=== PATIENT | male | born 1975 | race Caucasian/White ===

== ENCOUNTER 2023-02-18 11:27 | Emergency (ER) | payer MEDICARE, MEDICAID, SELFPAY ==
[2023-02-18 11:30] VITALS: BP 108/79; PULSE 87; RESP 18; TEMP 36.7; O2SAT 98; BMI 31.4
--- NOTE | 2023-02-18 11:43 | ED_ITS ---
HPI - General Adult General Stated complaint: UPPER EXTREMITY PAIN RIGHT ARM Time Seen by Provider: 02/18/23 11:43 Source: patient Mode of arrival: walk-in History of Present Illness HPI narrative: Patient presents to emergency department complaining of right arm pain. Patient states he has been laying some landscape bricks, using a powerwash yesterday. He states it was hurting before but now it has gotten much worse. It started in the right medial condyle and now is going to the lateral condyle. pain now radiates to his wrist, and flat. He also has quite to the posterior shoulder where there is tenderness and there is deep pain with range of motion only. Patient states he had lumbar and cervical surgery years ago. He denies any weakness. He states at times he feels some mild paresthesias to his entire hand. He called his primary care doctor is unable to get a hold of him. He took ibuprofen has not had any relief. He has been taking herbal kraton. The patient denies any fever, or chills. He denies any Edema.he denies any recent trauma. Related Data Previous Rx's Medication Instructions Recorded cyclobenzaprine 10 mg tablet 10 mg PO TID PRN muscle spasm #14 02/18/23 tabs methylprednisolone 4 mg tablets in 4 mg PO DAILY #21 ea 02/18/23 a dose pack (Medrol (Erlin)) Allergies Allergy/AdvReac Type Severity Reaction Status Date / Time No Known Drug Allergies Allergy Verified 02/18/23 11:33 Review of Systems ROS Status of ROS 10 or more systems reviewed and unremarkable except as noted in history and below Exam Narrative Exam Narrative: Nurses notes and vital signs reviewed and patient is not hypoxic. General: Nontoxic, Well-appearing and in no apparent distress. Skin: Warm, dry, no pallor noted. No Rash Head: Normocephalic, atraumatic. Neck: Supple, non-tender. Eye: Pupils are equal, round and EOMI. No scleral icterus. Ears, Nose, Mouth, and Throat: TM clear, no posterior oropharynx erythema or n chidi mucosal hypertrophy, uvula is mid-line Oral mucosa is moist Cardiovascular: Regular Rate and Rhythm without murmur, gallop or rub. Respiratory: No accessory muscle use or respiratory distress. Lungs are clear to auscultation, no wheezing, rales or rhonchi Chest Wall: no tenderness Back: No midline thoracic or lumbar vertebral tenderness. No CVA tenderness Musculoskeletal:Tenderness to palpation to the right posterior shoulder. There is no ecchymosis, no edema, no erythema, signs of trauma, infection. Full range of motion. Tenderness to palpation to the right medial malleolus. No erythema, ecchymosis, signs of trauma, infection. Radial pulse +2, capillary refill is brisk. Full range of motion. no calf or popliteal tenderness, no lower extremity edema/swelling GI: Abdomen is soft, non-distended. Normal bowel sounds. No masses appreciated. No tenderness to palpation. No rebound, guarding, or rigidity noted. Neurological: A&O x4. No cranial nerve dysfunction observed. No truncal ataxia. Moves all extremities. Sensation intact. Psychiatric: Cooperative and interactive. Normal mood and affect. Constitutional Vital Signs, click to edit/add: Last Vital Signs Temp 98.0 F 02/18/23 11:30 Pulse 87 02/18/23 11:30 Resp 18 02/18/23 11:30 BP 108/79 02/18/23 11:30 Pulse Ox 98 02/18/23 11:30 Course Vital Signs Vital signs: Vital Signs Temperature 98.0 F 02/18/23 11:30 Pulse Rate 87 02/18/23 11:30 Respiratory Rate 18 02/18/23 11:30 Blood Pressure 108/79 02/18/23 11:30 Pulse Oximetry 98 02/18/23 11:30 Temperature 98.0 F 02/18/23 11:30 Pulse Rate 87 02/18/23 11:30 Respiratory Rate 18 02/18/23 11:30 Blood Pressure 108/79 02/18/23 11:30 Pulse Oximetry 98 02/18/23 11:30 Medical Decision Making MDM Narrative Medical decision making narrative: no clinical indication for radiologic studies at this time. Patient was given Norflex and Toradol IM. Symptoms improved slightly but she still having some discomfort. Patient will be given a prescription for a Medrol Dosepak and Flexeril. He is to follow-up with primary care doctor for further evaluation and treatment. Patient advised to rest. At this time the patient is without objective evidence of an acute process requiring hospitalization or inpatient management. The patient has remained hemodynamically stable. No additional indication for emergent studies at this time. I answered all questions. Discussed discharge instructions including standard anticipatory guidance and what should prompt a return to the emergency department, including if they get worse are not getting better or develops any new or concerning symptoms. I've given them specific time frame in which to follow-up, and who to follow-up with. The patient demonstrates understanding. Patient is nontoxic and stable for discharge with outpatient follow-up. This note was created with the assistance of a speech recognition program. Although the intention is to generate documents that actually reflects the content of the visit, no guarantees can be provided that every mistake has been identified and corrected by editing. Discharge Plan Discharge Clinical Impression: Repetitive strain injury of right upper arm Patient Disposition: Home, Self-Care Time of Disposition Decision: 12:47 Condition: Good Mode of Transportation: Private Vehicle Prescriptions / Home Meds: New methylprednisolone [Medrol (Erlin)] 4 mg tablets,dose pack 4 mg PO DAILY Qty: 21 0RF cyclobenzaprine 10 mg tablet 10 mg PO TID PRN (Reason: muscle spasm) Qty: 14 0RF Instructions: Arm Pain (ED) Stand Alone Forms: Portal Instructions Referrals: LEOLA DOAN [Primary Care Provider] - 1 week
[2023-02-18] MEDS: ORPHENADRINE 60 MG/ 2 ML VIAL IM (12:10)
[2023-02-18] MEDS: KETOROLAC TROMETHAMINE 60 MG/2 ML VIAL IM (12:10)
== END 2023-02-18 13:01 | disposition home or self-care (01) ==
PROVIDERS: Emergency Provider Emergency Medicine; Family Provider Family Medicine; PCP Family Medicine
DX: S46.911A Strain of unspecified muscle, fascia and tendon at shoulder and upper arm level, right arm, initial encounter (principal); X50.3XXA Overexertion from repetitive movements, initial encounter
CPT/HCPCS: 96372; 99284